=== PATIENT | male | born 1970 | race African-American/Black ===

== ENCOUNTER 2018-02-06 01:43 | Emergency (ER) | payer BC, OTHER ==
--- NOTE | 2018-02-06 09:18 | RADIOLOGY REPORT (SQ) ---
EXAM DESCRIPTION: CT HEAD WITHOUT COMPLETED DATE/TIME: 02/06/2018 9:09 am REASON FOR STUDY: Headache left-sided COMPARISON: 11/10/2010. TECHNIQUE: Axial images acquired through the brain without intravenous contrast. Images reviewed wi th bone, brain and subdural windows. Additional sagittal and coronal reconstructions were generated. Images stored on PACS. All CT scanners at this facility use dose modulation, iterative reconstruction, and/or weight based d osing when appropriate to reduce radiation dose to as low as reasonably achievable (ALARA). [facility]: Dose Right [facility]: CareDose [facility]: Dose Right [facility]: Teradose 4D [facility]: Smart Novariant RADIATION DOSE: CT Rad equipment meets quality standard of care and radiation dose reduction techniq ues were employed. CTDIvol: 53.2 mGy. DLP: 964 mGy-cm. mGy. LIMITATIONS: None. FINDINGS: VENTRICLES: Normal size and contour. CEREBRUM: No masses. No hemorrhage. No midline shift. No evidence for acute infarction. Normal gra y/white matter differentiation. No areas of low density in the white matter. CEREBELLUM: No masses. No hemorrhage. No alteration of density. No evidence for acute infarction. EXTRAAXIAL SPACES: No fluid collections. No masses. ORBITS AND GLOBE: No intra- or extraconal masses. Normal contour of globe without masses. CALVARIUM: No fracture. PARANASAL SINUSES: No fluid or mucosal thickening. SOFT TISSUES: No mass or hematoma. OTHER: No other significant finding. IMPRESSION: NORMAL BRAIN CT WITHOUT CONTRAST. EVIDENCE OF ACUTE STROKE: NO. COMMENT: Quality ID # [id number]: Final reports with documentation of one or more dose reduction techniques (e.g., Automated exposure control, adjustment of the mA and/or kV according to patient size, use of iterative reconstruction technique) TECHNICAL DOCUMENTATION: JOB ID: [id number] [employer]- All Rights Reserved Reading location - IP/workstation name: [email or web address]
[2018-02-06 09:42] LABS: ABSOLUTE BASOPHILS # (AUTO) 0.1 10^3/uL (0.0-0.2); ABSOLUTE EOSINOPHILS # (AUTO) 0.2 10^3/uL (0.0-0.6); ABSOLUTE LYMPHOCYTES (AUTO) 3.3 10^3/uL (0.5-4.7); ABSOLUTE MONOCYTES (AUTO) 0.8 10^3/uL (0.1-1.4); ABSOLUTE NEUT (AUTO) 3.4 10^3/uL (1.7-8.2); BASOPHILS % (AUTO) 0.7 % (0-2); EOSINOPHILS % (AUTO) 2.3 % (0-6); HEMATOCRIT 43.9 % (37.9-51.0); HEMOGLOBIN 14.1 g/dL (13.5-17.0); LYMPHOCYTES % (AUTO) 42.7 % (13-45); MEAN CORPUSCULAR HEMOGLOBIN 26.2 pg (27.0-33.4); MEAN CORPUSCULAR HGB CONC 32.2 g/dL (32.0-36.0); MEAN CORPUSCULAR VOLUME 81 fl (80-97); MONOCYTES % (AUTO) 9.7 % (3-13); PLATELET COUNT 260 10^3/uL (150-450); RED BLOOD COUNT 5.39 10^6/uL (4.35-5.55); RED CELL DISTRIBUTION WIDTH 15.9 % (11.5-14.0); SEGMENTED NEUTROPHILS % (AUTO) 44.6 % (42-78); TOTAL CELLS COUNTED % (AUTO) 100 %; WHITE BLOOD COUNT 7.7 10^3/uL (4.0-10.5)
[2018-02-06 10:01] LABS: ALANINE AMINOTRANSFERASE 28 U/L (21-72); ALBUMIN 3.5 g/dL (3.5-5.0); ALKALINE PHOSPHATASE 89 U/L (38-126); ANION GAP 5 (5-19); ASPARTATE AMINO TRANSFERASE 23 U/L (17-59); BILIRUBIN,DIRECT 0.4 mg/dL (0.0-0.4); BILIRUBIN,TOTAL 0.6 mg/dL (0.2-1.3); BLOOD UREA NITROGEN 18 mg/dL (7-20); CALCIUM 9.3 mg/dL (8.4-10.2); CARBON DIOXIDE 31 mmol/L (22-30); CHLORIDE 105 mmol/L (98-107); GLUCOSE 131 mg/dL (75-110); POTASSIUM 4.6 mmol/L (3.6-5.0); SODIUM 140.9 mmol/L (137-145); TOTAL PROTEIN 6.8 g/dL (6.3-8.2)
--- NOTE | 2018-02-06 11:29 | RADIOLOGY REPORT (SQ) ---
EXAM DESCRIPTION: CHEST 2 VIEWS COMPLETED DATE/TIME: 02/06/2018 11:14 am REASON FOR STUDY: chest pain COMPARISON: None. EXAM PARAMETERS: NUMBER OF VIEWS: two views TECHNIQUE: Digital Frontal and Lateral radiographic views of the chest acquired. RADIATION DOSE: NA LIMITATIONS: none FINDINGS: LUNGS AND PLEURA: No opacities, masses or pneumothorax. No pleural effusion. MEDIASTINUM AND HILAR STRUCTURES: No masses or contour abnormalities. HEART AND VASCULAR STRUCTURES: Cardiomegaly. Mild vascular prominence. BONES: No acute findings. HARDWARE: None in the chest. OTHER: No other significant finding. IMPRESSION: CARDIOMEGALY AND MILD VASCULAR PROMINENCE. TECHNICAL DOCUMENTATION: JOB ID: [id number] [employer]- All Rights Reserved Reading location - IP/workstation name: [email or web address]
--- NOTE | 2018-02-06 12:36 | ER Document Report ---
ED General - General Chief Complaint: Headache Stated Complaint: HEADACHE Time Seen by Provider: 02/06/18 08:42 Mode of Arrival: Ambulatory Information source: Patient Notes: Patient is a 47-year-old male comes emergency room complaining of chest pain and headache. 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 He states that he passed out in his truck and when he woke up paramedics were over him. He states he did not elect to come to the hospital at that time. He does not have a history of headaches and states this was on the left side of his head and it is a squeezing kind of a discomfort. He also states that he has had some left- sided anterior chest pain with no radiation. He has a history of hypertension and denies any family history of cardiac. He does state that he has not been compliant with his blood pressure medications. Patient states when EMS picked him up after midnight last night because of his headache and chest pain they gave him nitro and aspirin and his blood pressure came down his headache got better and he feels on exam that he is improved. Patient also does state that there is a pertinent finding and that his 49-year-old brother last July from a brain aneurysm. Patient is unsure of as to the type of aneurysm it was or that it was related to anything besides a rupture. The patient is taking amlodipine 5 mg at night and lisinopril 20 mg at night. TRAVEL OUTSIDE OF THE [place] IN LAST 30 DAYS: No - HPI Onset: Last week Onset/Duration: Sudden, Worse Quality of pain: Pressure Severity: Moderate Pain Level: 3 Associated symptoms: Nonproductive cough, Nausea Exacerbated by: Movement, Walking Relieved by: Remaining still Similar symptoms previously: No Recently seen / treated by doctor: No - Related Data Allergies/Adverse Reactions: No Known Allergies Allergy (Unverified 02/06/18 01:49) Past Medical History - General Information source: Patient - Social History Smoking Status: Never Smoker Cigarette use (# per day): No Chew tobacco use (# tins/day): No Smoking Education Provided: No Frequency of alcohol use: None Drug Abuse: None Occupation: meat manager Lives with: Family Family History: Other - Brain aneurysm Patient has suicidal ideation: No Patient has homicidal ideation: No Pulmonary Medical History: Reports: None EENT Medical History: Reports: None Neurological Medical History: Reports: None Endocrine Medical History: Reports: None Renal/ Medical History: Reports: None. Denies: Hx Peritoneal Dialysis Malignancy Medical History: Reports None GI Medical History: Reports: None Musculoskeletal Medical History: Reports None Skin Medical History: Reports None Psychiatric Medical History: Reports: None Traumatic Medical History: Reports: None Infectious Medical History: Reports: None Surgical Hx: Negative Past Surgical History: Reports: None - Immunizations Immunizations up to date: Yes Review of Systems - Review of Systems Constitutional: No symptoms reported EENT: No symptoms reported Cardiovascular: Chest pain Respiratory: No symptoms reported Gastrointestinal: No symptoms reported Genitourinary: No symptoms reported Male Genitourinary: No symptoms reported Musculoskeletal: No symptoms reported Skin: No symptoms reported Hematologic/Lymphatic: No symptoms reported Neurological/Psychological: Headaches -: Yes All other systems reviewed and negative Physical Exam - Vital signs Vitals: Resp Pulse Ox 15 98 02/06/18 06:09 02/06/18 06:09 Interpretation: Hypertensive - Patient's vital signs do not populate on this patient but have been populated in other parts of the chart and there is trending on a down trend right now before of the good. We will have nursing to recheck this and add updates. - Notes Notes: Awake alert and oriented morbidly obese 47-year-old male - HEENT Head: Normocephalic, Atraumatic Eyes: Normal Conjunctiva: Normal Eyelashes: Normal Pupils: PERRL Visual cameron normal: Yes Ears: Normal External canal: Normal Tympanic membrane: Normal Sinus: Normal Nasal: Normal Mouth/Lips: Normal Mucous membranes: Normal Pharynx: Normal. No: Blood in hypopharynx, Peritonsillar abscess, Post nasal drainage, Tonsillar hypertrophy Neck: Normal - Respiratory Respiratory status: No respiratory distress Chest status: Nontender Breath sounds: Normal. No: Rales, Rhonchi, Stridor, Wheezing Chest palpation: Normal - Cardiovascular Rhythm: Regular Heart sounds: Normal auscultation Murmur: No - Abdominal Inspection: Normal Distension: No distension Bowel sounds: Normal Tenderness: Nontender Organomegaly: No organomegaly - Extremities General upper extremity: Normal inspection, Normal ROM General lower extremity: Normal inspection, Normal ROM - Neurological Neuro grossly intact: Yes Cognition: Normal Orientation: AAOx4 [place] Coma Scale Eye Opening: Spontaneous [place] Coma Scale Verbal: Oriented [place] Coma Scale Motor: Obeys Commands Nidhi Coma Scale Total: 15 Speech: Normal Cerebellar coordination: Normal 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 My intuition tells me patient was really concerned about having an aneurysm is and that he has been over stressed that work. he has also admitted to not being a noncompliant with his hypertensive medications. I had a long extensive talk with patient about his need to take medications on an established regular basis and the consequences for which he may pay if he does not take them accordingly. - Vital Signs Vital signs: Temp Pulse Resp BP Pulse Ox 18 122/77 100 02/06/18 12:01 02/06/18 12:00 02/06/18 12:01 - Laboratory Result Diagrams: 02/06/18 05:52 02/06/18 05:52 Laboratory results interpreted by me: 02/06/18 02/06/18 05:52 05:52 MCH 26.2 L RDW 15.9 H Carbon Dioxide 31 H Glucose 131 H Discharge - Discharge Clinical Impression: Atypical chest pain Hypertension Qualifiers: Hypertension type: unspecified Qualified Code(s): I10 - Essential (primary) hypertension Condition: Stable Disposition: HOME, SELF-CARE Instructions: Headache ([facility]), High Blood Pressure, Requiring Treatment ([facility]) Additional Instructions: Home today rest. Medications which are currently on of amlodipine and lisinopril please take on a regular basis. As we discussed the CT does show to have a normal-appearing brain however if you are concerned about an aneurysm you may discuss it with your primary care provider to see if he would like to do an MRI. Also we discussed taken blood pressures and keeping a log which will help your primary out dramatically. And should you have any concerns or problems with chest pain or the headaches get worse return to ER for a recheck. Prescriptions: Amlodipine Besylate 10 mg PO DAILY #30 tab Lisinopril 20 mg PO DAILY #30 tablet Forms: Elevated Blood Pressure, Parent Work Note
[2018-02-06 13:01] VITALS: BP 138/82
--- NOTE | 2018-02-06 14:32 | EKG REPORT ---
SEVERITY:- BORDERLINE ECG - SINUS RHYTHM LVH BY VOLTAGE BORDERLINE T ABNORMALITIES, INFERIOR LEADS : Confirmed by: Cheri Sanchez MD 06-Feb-2018 14:31:11
== END 2018-02-06 13:08 | disposition home or self-care (01) ==
LOC: ER 01:43
DX: R51 Headache (principal); R07.89 Other chest pain; I10 Essential (primary) hypertension; R11.0 Nausea; Z91.14 Patient's other noncompliance with medication regimen; Z79.899 Other long term (current) drug therapy
CPT/HCPCS: 36415; 70450; 71046; 80053; 82550; 83735; 84443; 84484; 85025; 93005; 93010; 99285